=== PATIENT | female | born 1955 | race Caucasian/White ===

== ENCOUNTER 2019-09-14 06:33 | Outpatient (CLI) | payer MEDICARE, SELFPAY ==
--- NOTE | 2019-09-14 | ECHO_ITS ---
Patient Info Name: Enid Batista Age: 64 years : 1955 Gender: Female Ht: 64 in Wt: 125 lbs BSA: 1.60 m2 HR: 64 bpm BP: 130 / 73 mmHg Heart Rhythm: Sinus Rhythm Technical Quality: Good Exam Date: 09/14/2019 7:29 AM Exam Location: [facility] Pulmonary Patient Status: Outpatient Admit Date: 09/14/2019 Staff Ordering Physician: Lorne Harrell MD Slitter And Rewinder Machine Operator: Mj Phoenix, SOPHIECS, RT Attending Provider: Lorne Harrell MD Exam Type: CA echo doppler color flow Study Info Indications Z85.3 - Personal history of malignant neoplasm of breast Complete two-dimensional, color flow and Doppler transthoracic echocardiogram is performed. Summary 1. Left ventricular systolic function is normal, estimated at 55-60%. 2. The left ventricular diastolic function is indeterminate. 3. There is mild aortic valve regurgitation. 4. Technically difficult study with poor visualization. Recommendations * Technically difficult study with poor visualization. Left Ventricle Left ventricular systolic function is normal, estimated at 55-60%. The left ventricular diastolic function is indeterminate. Right Ventricle Right ventricular chamber dimension is normal. Right ventricular systolic function is normal. Left Atria Left atrial chamber dimension is not well visualized. Right Atria Right atrial chamber dimension is normal. Aortic Valve The aortic valve is not well visualized. There is no aortic valve stenosis. There is mild aortic valve regurgitation. Pulmonic Valve The pulmonic valve is not well visualized. There is no pulmonic valve stenosis. There is no pulmonic regurgitation. Mitral Valve The mitral valve has not well visualized. There is no mitral valve stenosis. There is no mitral valve regurgitation. Tricuspid Valve The tricuspid valve leaflets are not well visualized. There is no significant tricuspid valve stenosis. There is no tricuspid valve regurgitation. Pericardium/Pleural The pericardium appears epicardial fat pad. There is no pericardial effusion. Aorta The aortic root size at the sinus of Valsalva is normal. Left Ventricular Outflow Tract Name Value Normal LVOT 2D LVOT Diameter 1.9 cm LVOT Doppler LVOT Peak Velocity 58 cm/s LVOT Peak Gradient 1 mmHg LVOT Mean Gradient 1 mmHg LVOT VTI 13 cm LVOT VTI/AV VTI Ratio 0.6 LVOT Stroke Volume 38 ml Pulmonic Valve Name Value Normal PV Doppler PV Peak Velocity 58 cm/s PV Peak Gradient 1 mmHg Mitral Valve Name Value Normal
== END 2019-09-14 06:34 | disposition home or self-care (01) ==
LOC: ANHCARD 06:36
PROVIDERS: Visit Provider Internal Medicine Hematology & Oncology
DX: C50.411 Malignant neoplasm of upper-outer quadrant of right female breast (principal); Z17.0 Estrogen receptor positive status [ER+]; I35.1 Nonrheumatic aortic (valve) insufficiency
CPT/HCPCS: 93306

== ENCOUNTER 2019-11-27 16:09 | Outpatient (CLI) | payer MEDICARE, SELFPAY ==
--- NOTE | ~2019-11-27 | XR_ITS ---
XR chest 2V 11/27/2019 16:50 Indication: Shortness of breath. Procedure: 2 view chest Comparison: No prior studies for comparison. Findings: There is pectus excavatum. There are breast implants. There is a port catheter, tip in the SVC. No focal air space disease, pulmonary edema, pleural effusion or suspected pneumothorax. No acut e osseous abnormality. Impression: 1: No acute cardiopulmonary disease. Reviewed, dictated and finalized at location A. L OPPORTUNITY COUNSELOR Impression: 1: No acute cardiopulmonary disease.
== END 2019-11-27 16:10 | disposition home or self-care (01) ==
PROVIDERS: Visit Provider Internal Medicine Hematology & Oncology
DX: R06.02 Shortness of breath (principal)
CPT/HCPCS: 71046

== ENCOUNTER 2019-11-28 12:51 | Outpatient (CLI) | payer MEDICARE, SELFPAY ==
--- NOTE | ~2019-11-28 | CT_ITS ---
EXAMINATION: CTA chest PE protocol DATE: 11/28/2019 13:18 INDICATION: Shortness of breath. Elevated d-dimer. TECHNIQUE: Computed tomography angiography (CTA) of the chest was performed with 100 mL Omnipaque-350 intravenous contrast timed to evaluate the pulmonary arteries. Coronal maximum intensity projection 3D-reconstructions were created by the technologist. Automated exposure control and iterative reconst ruction technique were employed. Exam dose: 165.28 mGy-cm total exam DLP. COMPARISON: 11/27/2021 view chest FINDINGS: There is thyroid gland enlargement with multiple hypoattenuating masses is much is 13 mm di mension. Consider thyroid ultrasound nonemergent evaluation There is diagnostic contrast enhancement of the pulmonary arteries; there is no evidence of pulmonary embolism. No hilar or mediastinal mass lesion or lymphadenopathy. There is discoid atelectasis or scarring in the left lower lobe. No pulmonary infiltrate or consolida tion or pulmonary mass lesion. Cardiomegaly. Pectus excavatum. Bilateral breast implants. IMPRESSION: No evidence of pulmonary embolism Pectus excavatum Thyromegaly and thyroid masses; consider nonemergent thyroid ultrasound evaluation. Reviewed, dictated and finalized at Location A. Reviewed, dictated and finalized at location B. CTOR OF MARKETING OPERATIONS IMPRESSION: No evidence of pulmonary embolism Pectus excavatum Thyromegaly and thyroid masses; consider nonemergent thyroid ultrasound evaluat ion.
== END 2019-11-28 12:52 | disposition home or self-care (01) ==
PROVIDERS: Visit Provider Internal Medicine Hematology & Oncology
DX: R06.02 Shortness of breath (principal); R79.89 Other specified abnormal findings of blood chemistry; Q67.6 Pectus excavatum
CPT/HCPCS: 71275; Q9967

== ENCOUNTER 2019-11-29 15:24 | Observation (INO) | payer MEDICARE, SELFPAY ==
--- NOTE | ~2019-11-29 | XR_ITS ---
EXAMINATION: XR chest 2V EXAM DATE: 11/29/2019 16:04 INDICATION: Chest pain. TECHNIQUE: Frontal and lateral projections of the chest obtained and reviewed. Comparison is made to prior examination from 11/27/2019. FINDINGS: There is pectus excavatum. There is a left-sided Chemo-Port with intact catheter line. The lungs are clear. There are no pleural effusions. The cardiomediastinal silhouette is within normal limits. There is no pneumothorax suspected. The bones and soft tissues are unremarkable. Right a xillary surgical clips. IMPRESSION: No acute cardiopulmonary findings. Reviewed, dictated and finalized at location A. ITY ASSURANCE PROJECT MANAGER
--- NOTE | ~2019-11-29 | US_ITS ---
EXAMINATION: US thyroid DATE: 11/30/2019 13:50 INDICATION: Thyroid nodules. TECHNIQUE: Multiple ultrasound images of the thyroid were obtained. COMPARISON: Chest CT 11/28/2019 FINDINGS: The right thyroid lobe measures 4.8 x 1.0 x 1.6 cm. The left thyroid lobe measures 6.2 x 2.1 x 2.0 c m. In the left thyroid lobe, there is a 3.2 cm solid, isoechoic, xchsi-mkbt-lbue nodule with ill-def ined margin without echogenic foci (TI-RADS TR3). In the right thyroid lobe, there is an 8 mm solid, hypoechoic, wchad-sffa-kkpb nodule with ill-defined margin without echogenic foci (TR4). In the thyro id isthmus, there is a 2.5 cm solid, hypoechoic, rfbwd-ergx-rwgn nodule with ill-defined margin witho ut echogenic foci (TR4). IMPRESSION: 1. Thyroid nodules. Ultrasound-guided fine-needle aspiration of the 2 largest nodules is recommended. Reviewed, dictated and finalized at location A. L TREATER IMPRESSION: 1. Thyroid nodules. Ultrasound-guided fine-needle aspiration of the 2 largest n odules is recommended.
--- NOTE | ~2019-11-29 | US_ITS ---
EXAMINATION: US venous doppler [facility] DATE: 11/30/2019 13:43 INDICATION: Chest pain. TECHNIQUE: Grayscale ultrasound images without and with compression and Doppler ultrasound images of the bilateral lower extremity veins were obtained. COMPARISON: None. FINDINGS: The visualized portions of right common femoral vein, profunda (deep) femoral vein, femoral vein, pop liteal vein, peroneal veins, posterior tibial veins, and greater saphenous vein outflow are patent. The visualized portions of left common femoral vein, profunda femoral vein, femoral vein, popliteal v ein, peroneal veins, posterior tibial veins, and greater saphenous vein outflow are patent. IMPRESSION: 1. No deep venous thrombosis. Reviewed, dictated and finalized at location A. CULTURE AND FISHERIES PROFESSOR
--- NOTE | ~2019-11-29 | NM_ITS ---
EXAMINATION: NM sharif stress w perfusion DATE: 11/30/2019 11:30 INDICATION: Chest pain. TECHNIQUE: Rest images were obtained following intravenous administration of 10.5 mCi Tc99m tetrofosm in (Myoview). The patient was infused intravenously with Lexiscan (regadenoson). Then, 33 mCi Tc99m t etrofosmin (Myoview) was administered intravenously, and stress images were obtained. Data was recons tructed into short axis and horizontal and vertical long axis SPECT images. Gated SPECT images were a lso obtained. COMPARISON: Chest CT 11/28/2019 FINDINGS: There is no definite reversible or fixed perfusion abnormality to suggest ischemia or infar ction. There is no segmental wall motion abnormality. Left ventricular ejection fraction measures > 70%. IMPRESSION: 1. No definite ischemia or infarct. 2. Normal left ventricular ejection fraction measuring >70%. Reviewed, dictated and finalized at location A. MBLER CATERPILLAR SPIDER
[2019-11-29 15:33] VITALS: BP 153/83; PULSE 80; PULSE 85; RESP 27; TEMP 36.8; O2SAT 100
--- NOTE | 2019-11-29 15:33 | ECG_ITS ---
Measurements Intervals [place] Rate: 90 P: 55 DE: 161 QRS: 48 QRSD: 70 T: 36 QT: 313 QTc: 384 Interpretive Statements SINUS RHYTHM ATRIAL PREMATURE COMPLEX BORDERLINE ST-T WAVE ABNORMALITY- ANT/INF LEADS BASELINE ARTIFACT- I, II, III, V3 BORDERLINE ECG Electronically Signed On 11-29-2019 21:08:15 YOUTH SERVICES SPECIALIST by Juan Childers D.O.
--- NOTE | 2019-11-29 15:59 | PC.NURSE ---
Pt taken to CT scan
[2019-11-29 16:05] LABS: Basophils Percent Auto 0.1 % (0.2-1.2); Hematocrit 32.8 % (37.0-47.0); Hemoglobin 10.9 g/dL (12.0-15.0); Immature Granulocyte Absolute 0.08 K/mm3 (0.00-0.031); Immature Granulocyte Percent A 0.9 % (0-0.5); Lymphocytes Percent Auto 31.5 % (18.3-44.2); Mean Corpuscular HGB Conc 33.2 g/dl (32-36); Mean Corpuscular Hemoglobin 32.2 pg (26-34); Mean Corpuscular Volume 96.8 fl (80-100); Mean Platelet Volume 9.6 fl (7.4-10.4); Monocytes Absolute Auto 0.6 K/mm3 (0.1-0.6); Monocytes Percent Auto 6.3 % (2.6-8.5); Neutrophils Absolute Auto 5.4 K/mm3 (1.3-6.7); Neutrophils Percent Auto 61.2 % (45.5-73.1); Platelet Count Result 478 k/mm3 (150-375); Red Blood Count 3.39 M/mm3 (4.2-5.4); Red Cell Distribution Width 14.4 % (11.5-14.5); White Blood Count 8.9 K/mm3 (4.5-10.0)
--- NOTE | 2019-11-29 16:12 | ED.CHESTPAIN ---
HPI - Chest Pain General Chief Complaint: Chest Pain Stated Complaint: CHEST PAIN & SOB Time Seen by Provider: 11/29/19 16:03 Source: patient Mode of arrival: ambulatory Limitations: no limitations History of Present Illness HPI narrative: A 64 y/o female presents to the ED with c/o CP. Pt states that today she suddenly had chest tightness and a hot feeling in her chest. The CP radiated into her jaw and was accompanied by a MAE, SOB, and a weird taste in her mouth. She notes that she is currently diagnosed with breast cancer, and last had chemotherapy on 11/27/19. Pt adds that she had some SOB after her chemotherapy, and had a D-dimer test which came back positive. She reports that she had a CTA and chest X-Ray done at [place], which were clear. MD complaint: chest pain Onset (ago): hour(s) (Today) Pain radiation: jaw/teeth Quality: tightness and other (Hot feeling in chest) Context: recent illness Associated symptoms: dyspnea and other (MAE, weird taste in mouth) Related Data Home Medications Medication Instructions Recorded Confirmed calcium carbonate-vitamin D3 1 tablet PO DAILY 09/22/19 11/17/19 [Calcium 500 + D] ondansetron HCl 4 mg PO Q8H 09/22/19 11/17/19 dexamethasone 4 mg PO BID 11/17/19 11/17/19 Allergies Allergy/AdvReac Type Severity Reaction Status Date / Time bacitracin Allergy Mild Blister Verified 09/12/19 15:27 [From Neosporin ([id number])] neomycin Allergy Mild Blister Verified 09/12/19 15:27 [From Neosporin ([id number])] polymyxin B Allergy Mild Blister Verified 09/12/19 15:27 [From Neosporin ([id number])] amoxicillin Allergy Unknown HIVES Verified 09/16/15 06:25 codeine Allergy Unknown JITTERY Verified 09/16/15 06:25 Review of Systems Review of Systems: Narrative: CONSTITUTIONAL: Denies fever, chills, or sweats. EYES: Denies visual changes, redness, or discharge. ENT: Denies rhinorrhea, congestion, sore throat, or otalgia. Reports weird taste in mouth. CARDIOVASCULAR: Denies palpitations or edema. Reports chest pain and tightness. RESPIRATORY: Denies cough. Reports dyspnea. GASTROINTESTINAL: Denies abdominal pain, nausea, vomiting, or diarrhea. GENITOURINARY: Denies dysuria or hematuria. SKIN: Denies rash or itching. MUSCULOSKELETAL: Denies back pain, joint pain, or myalgia. NEUROLOGIC: Denies numbness or weakness. Reports headache. All systems reviewed & are unremarkable except as noted in HPI and below PMFSH Past Medical History Medical History (Updated 11/29/19 @ 18:49 by Yolette Adames MD) Breast CA History of chemotherapy Post-menopausal Surgical History Surgical History (Updated 11/29/19 @ 17:16 by Erin Hernandes) Surgical history unknown Social History Social History Smoking status: Never smoker Gender identity (if verbalized by the patient): Female Spiritual care concerns: No Exam Narrative: Exam Narrative: GENERAL: Anxious-appearing, well-nourished, and in no acute distress. HEAD: Normocephalic, atraumatic. EYES: PERRLA and EOMI. ENT: Nares clear, no rhinorrhea or epistaxis. Mucous membranes moist. NECK: Supple. CHEST: Clear to auscultation. No respiratory distress. HEART: Regular rate and rhythm. No murmur heard. Normal peripheral pulses. No chest wall tenderness. Bilateral breast implants ABDOMEN: Soft, nontender, nondistended, normal active bowel sounds. EXTREMITIES: Normal range of motion. No edema. SKIN: Warm, dry, no rash. NEURO: No focal deficits. Alert and oriented X3. Course Course Emergency Course: Pt presented for evaluation of chest pain. Initial EKG without acute ischemic changes. Pt declined nitro in the ED. Pain is intermittent but per patient is associated with nausea, dyspnea. Initial troponin normal. Pt had CTA normal which showed no PE or effusions. Pain does seem atypical given symptoms. Also considered GI etiology, however symptoms do not really seem consisten
[2019-11-29 16:17] LABS: Blood Urea Nitrogen 32 mg/dL (7-17); Calcium 9.8 mg/dL (8.4-10.2); Carbon Dioxide 24 mmol/L (22-30); Chloride 100 mmol/L (98-107); Estimated CRCL calculation 53 ml/min; Estimated Glomerular Filt Rate > 60; Glucose 100 mg/dL (65-105); Potassium 3.9 mmol/L (3.4-5.0); Sodium 139 mmol/L (137-145)
[2019-11-29 16:28] LABS: Troponin I < 0.012 ng/mL (0.000-0.034)
[2019-11-29 16:44] LABS: Prothrombin Time 12.7 Seconds (11.1-14.7)
--- NOTE | 2019-11-29 17:04 | ECG_ITS ---
Measurements Intervals [place] Rate: 73 P: 56 CA: 176 QRS: 38 QRSD: 87 T: 29 QT: 372 QTc: 411 Interpretive Statements SINUS RHYTHM BASELINE ARTIFACT- I, II, III, AVL NORMAL ECG Electronically Signed On 11-29-2019 21:08:38 DISABILITY MANAGER by Juan Childers D.O.
[2019-11-29] MEDS: ASPIRIN 81 MG CHEWABLE TABLET 324 MG PO (17:20)
[2019-11-29 17:24] VITALS: BP 146/81; PULSE 81; RESP 16; O2SAT 96
[2019-11-29 17:39] LABS: NT Pro B Type Natriuretic Pept 232 PG/ML (5-100)
[2019-11-29 18:40] LABS: Troponin I < 0.012 ng/mL (0.000-0.034)
--- NOTE | 2019-11-29 19:09 | PC.NURSE ---
Called to give report and spoke with receiving nurse Barby. Barby asked if we could wait until 1930 to bring pt up.
[2019-11-29 19:59] LABS: Cholesterol 274 mg/dL (0-200); HDL Direct 39 mg/dL; Triglycerides 307 mg/dL (<150)
[2019-11-29 20:00] VITALS: BP 153/86; PULSE 72; PULSE 76; RESP 18; TEMP 36.2; O2SAT 99
--- NOTE | 2019-11-29 20:00 | ADMGEN ---
This patient, Enid Batista, was admitted to IMU Room 210-01. Patient/family oriented to hospital policies and general routines including ID bracelet, bed and alarms, visiting hours, pain management, procedures, bathroom and other care routines, personal items, smoking policy, room service/diet, and visiting hours. Valuables list has been completed. Information on how to activate the Rapid Response Team has been discussed. Patient/Family are encouraged to report perceived risks to care and to ask questions if they do not understand what they are told or what they should do.
[2019-11-29 20:08] VITALS: BP 132/86; PULSE 79; RESP 18; O2SAT 100
[2019-11-29 20:09] LABS: LDL Cholesterol Direct 185 mg/dL
[2019-11-29 22:00] VITALS: PULSE 81
--- NOTE | 2019-11-29 22:26 | PM.IMHP ---
H&P: HPI History of Present Illness Chief complaint: chest pain Narrative: Enid Batista is a 64 year old female who has a history of breast cancer. The patient was diagnosed with breast cancer June 2019. She started on chemotherapy September of last year. Her last chemotherapy was Wednesday. The patient is supposed to have chemo get on Wednesday. She is supposed to have 2 more rounds of chemo and then that it. The patient stated that suddenly she developed chest tightness and feeling hot in her chest and her neck and when upset around her face and her head. Patient also developed a weird taste in her mouth. Patient is also short of breath. She had an elevated D-dimer test. She also had a CTA which was negative for PE on the . There is thyromegaly and thyroid masses consider nonemergent thyroid ultrasound evaluation as well. Chest x-ray showed nothing acute. Patient was given nitro on aspirin. Cardiac enzymes were negative. Dr. chandra and Dr. fernandez both were notified and agreed to admit the patient overnight. Patient may possibly be going for a chemical and do stress test and echo tomorrow. Date of service 11/29/2019 Review of Systems Review of Systems: Narrative: The patient had mid substernal chest pressure that radiated up both sides of her neck opposed sides of her head and to the top of her head. She had no light headedness but has been short of breath. Patient has been a nonsmoker. No cardiac are lung history. All systems reviewed & are unremarkable except as noted in HPI and below Constitutional: Constitutional: Reports as per HPI and Reports no additional constitutional complaints Eyes: Eyes: Reports as per HPI and Reports no additional eye complaints ENT: Reports system reviewed and no additional complaints, except as documented and Reports Normal hearing present Cardiovascular: Cardiovascular: Reports no additional cardiovascular complaints Respiratory: Respiratory: Reports no additional respiratory complaints and Reports no additional respiratory complaints Gastrointestinal: Gastrointestinal: Reports as per HPI and Reports no additional gastrointestinal complaints Musculoskeletal: Musculoskeletal: Reports no additional musculoskeletal complaints Integumentary/Breasts: Skin/Breast: Reports system reviewed and no additional complaints, except as docu and Reports as per HPI Neurologic: Reports system reviewed and no additional complaints, except as documented, Reports as per HPI and Reports Normal hearing present Psychiatric: Psychiatric: Reports no additional psychiatric complaints and Reports as per HPI Endocrine: Endocrine: Reports no additional endocrine complaints Hematologic/Lymphatic: Hematologic/Lymphatic: Reports no additional hematologic/lymphatic complaints Allergic/Immunologic: Allergic/Immunologic: Reports no additional allergic/immunologic complaints [facility] Past Medical History Medical History (Updated 11/29/19 @ 22:38 by Bryanna Clifford NP) Breast CA Diagnosed June 2019. She started chemotherapy September of 2019. She has 2 more chemo treatments. She sees Dr. fernandez. She had bilateral mastectomy and reconstruction. History of chemotherapy Post-menopausal Surgical History Surgical History (Updated 11/29/19 @ 22:32 by Bryanna Clifford NP) H/O mastectomy Bilaterally with breast reconstruction. Hx of breast reconstruction Family History Family History (Updated 11/29/19 @ 22:34 by Bryanna Clifford NP) Unknown Unknown family medical history Social History Social History (Updated 11/29/19 @ 22:35 by Bryanna Clifford NP) Social History: The patient has 3 children she is . 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 Her daughter Joleen is a durable power personal injury attorney for healthcare. Patient is a full code. Lifelong nonsmoker does not drink or use street drugs Smoking status: Never smoker Alcohol intake: never Substance use: never Subst
[2019-11-29 22:53] LABS: Troponin I < 0.012 ng/mL (0.000-0.034)
[2019-11-30] VITALS (8 sets, daily range): BP systolic 94–123; BP diastolic 55–65; PULSE 64–120; RESP 18–20; TEMP 36.3–37.3; O2SAT 97–100
--- NOTE | 2019-11-30 | ECHO_ITS ---
Patient Info Name: Enid Batista Age: 64 years : 1955 Gender: Female Ht: 64 in Wt: 120 lbs BSA: 1.57 m2 HR: 110 bpm BP: 123 / 65 mmHg Heart Rhythm: Tachycardia Technical Quality: Fair Exam Date: 11/30/2019 2:47 PM Exam Location: [facility] Card Pulmonary Patient Status: Inpatient Admit Date: 11/29/2019 Staff Ordering Physician: Yolette Adames MD Awnings Mechanic: Horace Santana RDCS Attending Provider: Tony Cannon MD Referring Physician: Zacarias ANN; Exam Type: CA echo doppler color flow Study Info Indications R07.9 - Chest pain, unspecified Complete two-dimensional, color flow and Doppler transthoracic echocardiogram is performed. History/Risk Factors Chest pain; SOB, breast cancer. Summary 1. Left ventricular systolic function is normal, estimated at 65-70%. 2. There is mildly increased left ventricular wall thickness. 3. Right ventricular chamber dimension is mildly enlarged. 4. Mild pulmonary hypertension, estimated pulmonary arterial systolic pressure is 45 mmHg. 5. There is mild tricuspid valve regurgitation. Left Ventricle Left ventricular chamber dimension is normal. Left ventricular systolic function is normal, estimated at 65-70%. There is mildly increased left ventricular wall thickness. Left ventricular septal wall motion is normal. The left ventricular diastolic function is normal. Right Ventricle Right ventricular chamber dimension is mildly enlarged. Right ventricular systolic function is normal. Left Atria Left atrial chamber dimension is normal. Right Atria Right atrial chamber dimension is normal. Aortic Valve The aortic valve is trileaflet. There is no aortic valve sclerosis. There is no aortic valve stenosis. There is no aortic valve regurgitation. Pulmonic Valve The pulmonic valve is normal. There is no pulmonic valve stenosis. There is no pulmonic regurgitation. Mitral Valve The mitral valve has normal leaflets. There is no mitral valve stenosis. There is no mitral valve regurgitation. Tricuspid Valve The tricuspid valve leaflets are normal. There is no significant tricuspid valve stenosis. There is mild tricuspid valve regurgitation. Mild pulmonary hypertension, estimated pulmonary arterial systolic pressure is 45 mmHg. Pericardium/Pleural The pericardium appears normal. There is no pericardial effusion. Aorta The aortic root size at the sinus of Valsalva is normal. The prox ascending aorta size is normal. Left Ventricular Outflow Tract Name Value Normal LVOT 2D LVOT Diameter 1.8 cm LVOT Doppler LVOT Peak Gradient 3 mmHg LVOT Mean Gradient 2 mmHg LVOT VTI 12 cm LVOT VTI/AV VTI Ratio 0.6 LVOT Stroke Volume 31 ml LVOT CO 3.4 l/min LVOT CI 2.2 l/min/m2 Mitral Valve Name Value
[2019-11-30 05:10] LABS: Basophils Percent Auto 0.3 % (0.2-1.2); Eosinophils Percent Auto 0.5 % (0-4.4); Hematocrit 29.1 % (37.0-47.0); Hemoglobin 9.7 g/dL (12.0-15.0); Immature Granulocyte Absolute 0.04 K/mm3 (0.00-0.031); Immature Granulocyte Percent A 0.6 % (0-0.5); Lymphocytes Absolute Auto 2.28 K/mm3 (0.9-3.2); Lymphocytes Percent Auto 36.7 % (18.3-44.2); Mean Corpuscular HGB Conc 33.3 g/dl (32-36); Mean Corpuscular Hemoglobin 32.4 pg (26-34); Mean Corpuscular Volume 97.3 fl (80-100); Mean Platelet Volume 9.8 fl (7.4-10.4); Monocytes Absolute Auto 0.3 K/mm3 (0.1-0.6); Monocytes Percent Auto 5.5 % (2.6-8.5); Neutrophils Absolute Auto 3.5 K/mm3 (1.3-6.7); Neutrophils Percent Auto 56.4 % (45.5-73.1); Platelet Count Result 390 k/mm3 (150-375); Red Blood Count 2.99 M/mm3 (4.2-5.4); Red Cell Distribution Width 14.4 % (11.5-14.5); White Blood Count 6.2 K/mm3 (4.5-10.0)
[2019-11-30 05:26] LABS: Alanine Aminotransferase 24 U/L (4-35); Albumin Level 3.1 g/dL (3.5-5.1); Alkaline Phosphatase 57 U/L (38-126); Aspartate Amino Transferase 22 U/L (14-36); Bilirubin,Total 0.5 mg/dL (0.2-1.3); Blood Urea Nitrogen 30 mg/dL (7-17); Calcium 8.7 mg/dL (8.4-10.2); Carbon Dioxide 25 mmol/L (22-30); Chloride 103 mmol/L (98-107); Estimated CRCL calculation 57 ml/min; Estimated Glomerular Filt Rate > 60; Glucose 99 mg/dL (65-105); Magnesium 2.2 mg/dL (1.6-2.3); Potassium 4.1 mmol/L (3.4-5.0); Sodium 138 mmol/L (137-145)
--- NOTE | 2019-11-30 08:00 | EST_ITS ---
Patient Info Name: Enid Batista Age: 64 years : 1955 Gender: Female Ht: 64 in Wt: 116 lbs BSA: 1.54 m2 Exam Date: 11/30/2019 10:19 AM Exam Location: [facility] Stress Patient Status: Inpatient Admit Date: 11/29/2019 Staff Ordering Physician: Francisco Luther MD Attending Provider: Tony Cannon MD Exercise Technologist: Ivanna Landa RDCS Exercise Physician: Robin Knutson MD Exam Type: CA stress sharif w NM Study Info Indications R07.89 - Other chest pain A regadenoson stress test was performed. Summary 1. Indication for the stress test, chest pain. 2. Please correlate with nuclear medicine images, reported separately. 3. No abnormal ST-T wave changes with lexiscan. 4. Nuclear test results to follow. Protocol: Lexiscan Stress ECG Details Stage: REST Duration (min): 1 min : 27 sec HR (bpm): 87 SBP (mmHg): 154 DBP (mmHg): 91 Stage: REST Duration (min): 7 min : 35 sec HR (bpm): 87 SBP (mmHg): 154 DBP (mmHg): 91 Stage: STAGE 1 Duration (min): 0 min : 59 sec HR (bpm): 82 SBP (mmHg): 165 DBP (mmHg): 86 Stage: RECOVERY Duration (min): 1 min : 0 sec HR (bpm): 119 SBP (mmHg): 165 DBP (mmHg): 86 Stage: RECOVERY Duration (min): 2 min : 0 sec HR (bpm): 119 SBP (mmHg): 146 DBP (mmHg): 73 Stage: RECOVERY Duration (min): 3 min : 0 sec HR (bpm): 120 SBP (mmHg): 144 DBP (mmHg): 69 Stage: RECOVERY Duration (min): 4 min : 0 sec HR (bpm): 113 SBP (mmHg): 144 DBP (mmHg): 69 Stage: RECOVERY Duration (min): 5 min : 0 sec HR (bpm): 112 SBP (mmHg): 142 DBP (mmHg): 69 Stage: RECOVERY Duration (min): 6 min : 0 sec HR (bpm): 111 SBP (mmHg): 142 DBP (mmHg): 69 Stage: RECOVERY Duration (min): 6 min : 45 sec HR (bpm): 110 SBP (mmHg): 139 DBP (mmHg): 71 Rest HR: 87 bpm Peak HR: 122 bpm Rest Sys BP: 154 mmHg Peak Sys BP: 165 mmHg Max Pred HR: 155 bpm % Max Pred HR: 79 % Target HR: 132 bpm Max RPP: 20,130 bpm*mmHg BP Response: Normal blood pressure response Termination Reason: Completed protocol Cardiac Symptoms: Dyspnea Total Time: 1 min : 0 sec Rest Chavez BP: 91 mmHg Peak Chavez BP: 86 mmHg Total Dose: 0.4 mg Resting ECG Normal sinus rhythm. Stress ECG No abnormal ST/T wave changes with exercise. Arrhythmias None. Report Signatures
--- NOTE | 2019-11-30 09:03 | PM.CNCAR ---
Assessment and Plan Assessment and plan (1) Thyroid nodule: Code(s): E04.1 - Nontoxic single thyroid nodule Status: Acute Assessment and Plan: Patient is a 64-year-old white woman with history of breast cancer (diagnosed June 2019, started on chemotherapy September 2019, last chemotherapy Wednesday, with 2 more rounds of chemotherapy planned), who is seen in cardiac consultation for chief complaint of chest pain. - thyroid ultrasound and evaluation as per primary service. - TSH normal this admission. (2) Atypical chest pain: Code(s): R07.89 - Other chest pain Status: Acute Assessment and Plan: -Patient presents with atypical chest pain currently resolved. -serial troponin negative for injury and EKG without evidence of acute injury. -obtain Lexiscan nuclear stress test to evaluate for ischemia. -obtain echo to evaluate cardiac structure and function. -continue aspirin. -CTA of the chest negative for pulmonary embolism but given elevated D-dimer, lower extremity venous Doppler pending. -Repeat fasting lipid panel as patient may not have been fasting with her presenting lipid panel. LDL was elevated 185 and triglycerides elevated 307 on initial assessment. Patient does not want to start a statin at this time. (3) Breast CA: Code(s): C50.919 - Malignant neoplasm of unspecified site of unspecified female breast Status: Acute Assessment and Plan: - Management as per primary service and accommodate. - Obtain echo to evaluate cardiac structure/function given recent ongoing chemotherapy. History of Present Illness History of Present Illness Consult date/time: 11/30/19 09:03 Patient is a 64-year-old white woman with history of breast cancer (diagnosed June 2019, started on chemotherapy September 2019, last chemotherapy Wednesday, with 2 more rounds of chemotherapy planned), who is seen in cardiac consultation for chief complaint of chest pain. Patient reports new onset central chest pressure while lying down after eating soup. She reported a feeling of warmth in her chest with some associated dyspnea with the discomfort extending to her neck. She also noticed an unusual taste in her mouth. Patient was seen in the emergency department for evaluation of this and had elevated D-dimer prompting a CTA of the chest was negative for pulmonary embolism. Thyromegaly and thyroid masses were noted on CTA with consideration of nonemergent thyroid ultrasound. Chest x-ray showed no acute disease. Patient was treated with aspirin. Serial troponin I was negative for injury. Patient reports a 4 week history of increased exertional dyspnea. She denies edema, orthopnea, or paroxysmal nocturnal dyspnea. She denies palpitations but reports occasional dizziness. She denies syncope. Patient denies any history of myocardial infarction, coronary artery disease, congestive heart failure, cardiac arrhythmia, or valvular heart disease. She denies any history of prior left heart catheterization or prior cardiac stress testing. She denies any history of tobacco use, alcohol use, or drug use. Patient reports that her father had myocardial infarction with congestive heart failure in his late 50s and early 60s. This admission, telemetry demonstrated normal sinus rhythm, 77 beats per minute. EKG demonstrates normal sinus rhythm, 73 beats per minute, baseline artifact. Troponin I was negative for injury on 3 occasions. Creatinine was 0.8, potassium 3.9, magnesium 2.2. N terminal proBNP was elevated to 132. LDL was elevated 185 and triglycerides elevated at 307. TSH was normal at 1.48. Previously, the patient had echocardiogram on 09/14/2019: Left ventricular systolic function normal, left ventricular ejection fraction 55-60%, mild aortic valve regurgitation, technically difficult study. Patient was seen and examined, chart reviewed, case discussed with nurse. Reason For Visit: chest pain Review of System
--- NOTE | 2019-11-30 11:40 | PM.DS ---
DS: Diagnosis Admitting Diagnosis Admitting Diagnosis: Other chest pain Discharge Diagnosis (1) Atypical chest pain: Code(s): R07.89 - Other chest pain Status: Acute Assessment and Plan: Discussed the etiology for chest pain does not appear to be cardiac or pulmonary It may be reflux or indigestion related to chemotherapy She will report any further recurrences to her primary physician or oncologist (2) Breast CA: Code(s): C50.919 - Malignant neoplasm of unspecified site of unspecified female breast Status: Acute Assessment and Plan: She will discuss resumption of chemotherapy with her oncologist (3) Thyroid nodule: Code(s): E04.1 - Nontoxic single thyroid nodule Status: Acute Assessment and Plan: Ultrasound with multinodular goiter Needle biopsy recommended DS: Summary Hospital Course Reason for hospitalization: Chest discomfort Hospital Course: Patient described a burning chest discomfort associated shortness of breath. Radiation to the neck and face. Presented the emergency department where EKG was unremarkable, troponins were negative at baseline 3 hours and 6 hours, chest x-ray was unremarkable, and CT of the chest showed no pulmonary emboli. It did reveal a goiter. Ultrasound showed a multinodular goiter. Venous Dopplers both legs showed no DVT. Lexiscan stress was negative with ejection fraction greater than 70%. Echocardiogram was performed with results pending at the time of this dictation. Status at Discharge Functional status at discharge: independent ambulation Overall status at discharge: patient is back to baseline Time Spent with Patient Time attestation: Total time spent providing and/or coordinating discharge services: 38 min Exam Narrative: Exam Narrative: HEENT: EOMI, PERRL, pharyngeal mucosa pink and intact NECK: No JVD, mild thyromegaly CHEST: Clear to auscultation. Normal effort. HEART: NL S1/S2, regular, no murmur ABDOMEN: BS+, soft, nontender, no mass, no bruits EXTREMITIES: No cyanosis, edema, or clubbing NEUROLOGIC: CN intact and symmetric to inspection. MUSCULOSKELETAL: Tone and strength symmetric. PSYCH: Alert. Oriented to person, place, and time. DS: Data Data Completed and Pending Labs on day of discharge: Labs from last 24 hours 11/30/19 11/30/19 11/30/19 04:36 04:36 04:36 WBC 6.2 RBC 2.99 L Hgb 9.7 L Hct 29.1 L MCV 97.3 MCH 32.4 MCHC 33.3 RDW 14.4 Plt Count 390 H MPV 9.8 Immature Gran % (Auto) 0.6 H Neut % (Auto) 56.4 Lymph % (Auto) 36.7 [place] % (Auto) 5.5 Eos % (Auto) 0.5 Baso % (Auto) 0.3 Lymph # (Auto) 2.28 [place] # (Auto) 0.3 Eos # (Auto) 0.0 Baso # (Auto) 0.0 Abs Immat Gran (auto) 0.04 H Absolute Neuts (auto) 3.5 Absolute Nucleated RBC 0.0 Nucleated RBC % 0.0 PT INR APTT Sodium 138 Potassium 4.1 Chloride 103 Carbon Dioxide 25 BUN 30 H Creatinine 0.70 Estim Creat Clear Calc 57 Estimated GFR > 60 Glucose 99 Calcium 8.7 Magnesium 2.2 Total Bilirubin 0.5 AST 22 ALT 24 Alkaline Phosphatase 57 Troponin I NT-Pro-B Natriuret Pep Total Protein 6.0 L Albumin 3.1 L Triglycerides Cholesterol LDL Cholesterol Direct HDL Direct TSH (Reflex) 1.480 11/29/19 11/29/19 11/29/19 22:12 18:13 18:13 WBC RBC Hgb Hct MCV MCH MCHC RDW Plt Count MPV Immature Gran % (Auto) Neut % (Auto) Lymph % (Auto) [place] % (Auto) Eos % (Auto) Baso % (Auto) Lymph # (Auto) [place] # (Auto) Eos # (Auto) Baso # (Auto) Abs Immat Gran (auto) Absolute Neuts (auto) Absolute Nucleated RBC Nucleated RBC % PT INR APTT Sodium Potassium Chloride Carbon Dioxide BUN Creatinine Estim Creat Clear Calc Estimated GFR Glucose Calcium Magnesium Total Bilirub
[2019-11-30] MEDS: ASPIRIN 81 MG CHEWABLE TABLET 324 MG PO (11:47)
[2019-11-30] MEDS: FAMOTIDINE 20 MG/2 ML VIAL IV PUSH (11:48)
== END 2019-11-30 17:58 | disposition home or self-care (01) ==
LOC: ANHED 16:03 → ANHIMU 18:49
PROVIDERS: Family Medicine; Nurse Practitioner; Specialist; Admitting Provider Internal Medicine; Emergency Provider Emergency Medicine; Visit Provider Internal Medicine
DX: R07.89 Other chest pain (principal); C50.919 Malignant neoplasm of unspecified site of unspecified female breast; Z78.0 Asymptomatic menopausal state; E04.1 Nontoxic single thyroid nodule; R06.02 Shortness of breath; Z79.899 Other long term (current) drug therapy
CPT/HCPCS: 36415; 71046; 76536; 78452; 80048; 80053; 80061; 83735; 83880; 84443; 84484; 85025; 85610; 85730; 87040; 93005; 93017; 93306; 93970; 96374; 96376; 99285; A9270; A9502; G0378; J2785

== ENCOUNTER 2020-06-21 09:50 | Outpatient (CLI) | payer MEDICARE, SELFPAY ==
--- NOTE | 2020-06-21 | ECHO_ITS ---
Patient Info Name: Enid Batista Age: 65 years : 1955 Gender: Female Ht: 64 in Wt: 130 lbs BSA: 1.64 m2 BP: 141 / 75 mmHg Heart Rhythm: Sinus Rhythm Exam Date: 06/21/2020 10:08 AM Exam Location: [facility] Patient Status: Outpatient Admit Date: 06/21/2020 Staff Ordering Physician: Lorne Harrell MD Paste Maker: Phoebe Randolph RDCS Attending Provider: Lorne Harrell MD Referring Physician: Julio Cesar CARTY; Exam Type: CA echo doppler color flow Study Info Indications - PRE-OP Complete two-dimensional, color flow and Doppler transthoracic echocardiogram is performed. Summary 1. Complete two-dimensional, color flow and Doppler transthoracic echocardiogram is performed. 2. Technically difficult study with limited views. 3. Left ventricular chamber dimension is normal. 4. Left ventricular wall thickness is normal. 5. Left ventricular systolic function is mildly reduced with an ejection fraction by Biplane Method of Discs of 48 %. 6. There is mild aortic valve regurgitation. 7. There is mild to moderate mitral valve regurgitation. Left Ventricle Left ventricular chamber dimension is normal. Left ventricular wall thickness is normal. Left ventricular systolic function is mildly reduced with an ejection fraction by Biplane Method of Discs of 48 %. Normal diastolic function for age. Left ventricular endocardium is not well visualized preventing adequate wall motion interpretation. Right Ventricle Right ventricular chamber dimension is normal. Right ventricular systolic function is normal. Ventricular Septum No evidence for ventricular septal defect by two dimensional and colorflow Doppler imaging. Left Atria Left atrial chamber dimension is normal. Right Atria Right atrial chamber dimension is normal. Atrial Septum Interatrial septum not well visualized by 2D imaging. Aortic Valve Aortic valve is not well visualized. There is mild aortic valve sclerosis. There is no aortic valve stenosis. There is mild aortic valve regurgitation. The aortic valve is trileaflet. Pulmonic Valve Pulmonary valve is not well visualized. There is trace pulmonic regurgitation. There is mild pulmonic valve stenosis. Mitral Valve Mitral valve is structurally and functionally normal to two-dimensional, color flow Doppler and Doppler interrogation. Mitral valve is not well visualized. There is mild to moderate mitral valve regurgitation. There is no mitral valve stenosis. Tricuspid Valve The tricuspid valve is not well visualized. There is mild tricuspid valve regurgitation. There is no significant tricuspid valve stenosis. No pulmonary hypertension, estimated pulmonary arterial systolic pressure is 27 mmHg. Pericardium/Pleural Pericardium is normal in appearance with no evidence for significant pericardial effusion. Inferior Vena Cava Inferior vena cava is not well visualized. Normal inferior vena cava with <50% collapse upon inspiration consistent with elevated right atrial pressure, 10 mmHg. Aorta The ascending aorta is not well visualized. Left Ventricular Outflow Tract Name Value Normal LVOT 2D LVOT Diameter 2.0 cm LVOT Doppler
== END 2020-06-21 09:51 | disposition home or self-care (01) ==
PROVIDERS: Visit Provider Internal Medicine Hematology & Oncology
DX: Z01.810 Encounter for preprocedural cardiovascular examination (principal); I08.0 Rheumatic disorders of both mitral and aortic valves
CPT/HCPCS: 93306

== ENCOUNTER 2020-07-30 12:27 | Outpatient (CLI) | payer MEDICARE, SELFPAY ==
--- NOTE | 2020-07-30 | ECHO_ITS ---
Patient Info Name: Enid Batista Age: 65 years : 1955 Gender: Female Ht: 64 in Wt: 130 lbs BSA: 1.64 m2 HR: 60 bpm BP: 110 / 75 mmHg Heart Rhythm: Sinus Rhythm Technical Quality: Good Exam Date: 07/30/2020 1:09 PM Exam Location: [facility] Patient Status: Outpatient Admit Date: 07/30/2020 Staff Ordering Physician: Lorne Harrell MD [employer]: [place], [place], [place] Attending Provider: Lorne Harrell MD Referring Physician: Julio Cesar CARTY; Exam Type: CA echo doppler color flow Study Info Indications C80.1 - Malignant (primary) neoplasm, unspecified Complete two-dimensional, color flow and Doppler transthoracic echocardiogram is performed. Strain analysis performed. Summary 1. Complete two-dimensional, color flow and Doppler transthoracic echocardiogram is performed. 2. Left ventricular chamber dimension is normal. 3. Left ventricular systolic function is normal, estimated at 55-60%. 4. Ejection fraction is measured at 56%. 5. There is mild aortic valve regurgitation. Left Ventricle Left ventricular chamber dimension is normal. Left ventricular systolic function is normal, estimated at 55-60%. The left ventricular diastolic function is normal. Ejection fraction is measured at 56%. Right Ventricle Right ventricular chamber dimension is normal. Left Atria Left atrial chamber dimension is normal. Right Atria Right atrial chamber dimension is normal. Aortic Valve The aortic valve is trileaflet. There is mild aortic valve regurgitation. Pulmonic Valve The pulmonic valve is not well visualized. Mitral Valve The mitral valve has normal leaflets. Tricuspid Valve The tricuspid valve leaflets are normal. Pericardium/Pleural The pericardium appears normal. Aorta The aortic root size at the sinus of Valsalva is normal. Left Ventricular Outflow Tract Name Value Normal LVOT 2D LVOT Diameter 2.0 cm LVOT Doppler LVOT Peak Gradient 2 mmHg LVOT Mean Gradient 1 mmHg LVOT VTI 15 cm LVOT VTI/AV VTI Ratio 0.8 LVOT Stroke Volume 47 ml LVOT CO 2.9 l/min LVOT CI 1.8 l/min/m2 Mitral Valve Name Value Normal MV Doppler MV Decel [place] 249 cm/s2 MV PHT 65 ms MV Area (PHT) 3.4 cm2 4.0-5.0 MV Diastolic Function MV E Peak Velocity 56 cm/s MV A Peak Velocity 61 cm/s MV E/A 0.9 MV Decel Time 224 ms
== END 2020-07-30 12:28 | disposition home or self-care (01) ==
PROVIDERS: Visit Provider Internal Medicine Hematology & Oncology
DX: C50.411 Malignant neoplasm of upper-outer quadrant of right female breast (principal); Z17.0 Estrogen receptor positive status [ER+]; Z79.899 Other long term (current) drug therapy
CPT/HCPCS: 93306

== ENCOUNTER 2020-09-13 07:05 | Outpatient (NON) | payer MEDICARE, SELFPAY ==
[2020-09-13 19:11] LABS: SARS-CoV-2 RNA PCR Negative
== END 2020-09-13 07:06 ==
DX: Z20.828 Contact with and (suspected) exposure to other viral communicable diseases (principal); R09.89 Other specified symptoms and signs involving the circulatory and respiratory systems
CPT/HCPCS: 87635; C9803; U0003

== ENCOUNTER 2025-01-03 13:16 | Outpatient (CLI) | payer MEDICARE, SELFPAY ==
[2025-01-03 13:30] LABS: Basophils Absolute Auto 0.1 K/mm3 (0.0-0.1); Basophils Percent Auto 0.8 % (0.2-1.2); Eosinophils Absolute Auto 0.1 K/mm3 (0-0.3); Eosinophils Percent Auto 0.6 % (0-4.4); Hematocrit 40.4 % (37.0-47.0); Hemoglobin 13.5 g/dL (12.0-15.0); Immature Granulocyte Absolute 0.01 K/mm3 (0.00-0.031); Immature Granulocyte Percent A 0.1 % (0-0.5); Lymphocytes Absolute Auto 2.55 K/mm3 (0.9-3.2); Lymphocytes Percent Auto 32.8 % (18.3-44.2); Mean Corpuscular HGB Conc 33.4 g/dl (32-36); Mean Corpuscular Hemoglobin 32.1 pg (26-34); Mean Corpuscular Volume 96.2 fl (80-100); Mean Platelet Volume 9.2 fl (7.4-10.4); Monocytes Absolute Auto 0.7 K/mm3 (0.1-0.6); Monocytes Percent Auto 8.5 % (2.6-8.5); Neutrophils Absolute Auto 4.5 K/mm3 (1.3-6.7); Neutrophils Percent Auto 57.2 % (45.5-73.1); Platelet Count Result 287 k/mm3 (150-375); Red Cell Distribution Width 12.9 % (11.5-14.5); White Blood Count 7.8 K/mm3 (4.5-10.0)
--- OUTSIDE RECORDS SUMMARY | 2025-01-03 14:25 | XMS_ITS | Encounter Summary ---
Author Organization [facility] Address [address] [place] [address] Care Team Providers Care Bodywork Therapist Name Role Phone Mariya Bruce MD Primary Care Provider [phone] Encounter Details Date Type Department Care Team (Late st Contact Info) Description 12/12/2008 Outpatient Historical [facility] Galindo Dominguez MD [address] [facility] [address] [place], [place] [id number] Social History Tobacco Use Types Packs/Day Years Used Date Smoking Tobacco: Never Alcohol Use Standard Drinks/Week Comments No 0 (1 standard drink = 0.6 oz pur e alcohol) Comments No Sex and Gender Information Value Date Recorded Sex Assigned at Not on file Legal Sex Female 5:41 AM ASSEMBLER BONDING Gender Identity Not on file Sexual Orientation Not on file 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 Not on file Not on fi le documented as of this encounter Plan of Treatment Upcoming Encounters Date Type Department Care Team (Late st Contact Info) Description 01/11/2025 2:15 PM CDT Office Visit [facility] Oncology and Hematology - [place] [address] [place] [address] Lorne Harrell MD [address] [facility] [address] [place] [address] 07/17/2025 11:30 AM CDT Office Visit [facility] Family Medicine [address] [facility] [address] [address] [address] [facility] [address] [address] [place] [address] [address] [facility] [address] [place] [address] documented as of this encounter Visit Diagnoses Not on filedocumented in this encounter Care Teams Bodywork Therapist Relationship Specialty [place] [address] [address] [facility] [address] [address] PCP - General Family Practice 09/16/16 documented as of this encounter
--- OUTSIDE RECORDS SUMMARY | 2025-01-03 14:25 | XMS_ITS | Referral Summary ---
Author Organization [facility] Address [address] [place] [address] Care Team Providers Care Entry Level Installation Technician Name Role Phone Mariya Bruce MD Primary Care Provider [phone] Joshua, Ama Bush MD Unavailable [phone] Essence Purvis MD Unavailable [phone] Bebeto Jack MD Unavailable [phone] Allergies Active Allergy Reactions Criticality Noted Date Comments Adhesive Tape-Silicones Other (See comments),Rash Medium 06/16/2019 Antibacterial ointments cause blisters- not allergic to tape Amoxicillin Hives,Itching Medium 11/13/2008 Bacitracin Rash Medium 08/24/2019 POISON BENJI LIKE RASH-OOZY Codeine Nausea & Vomiting Low 11/13/2008 Medications lidocaine-prilo stevie (lidocaine-pril ocaine) cream Apply topically 9 Active Active Problems Problem Noted Date Diagnosed Date Malignant neoplasm of upper- outer quadrant of right breast in female, estrogen receptor positive 06/08/2019 Social History Tobacco Use Types Packs/Day Years Used Date Smoking Tobacco: Never Smokeless Tobacco: Never Personal Safety Answer Date Recorded Getting School Help Needed Not on file 12/23 Comments Unknown Sex and Gender Information Value Date Recorded Sex Assigned at Not on file Legal Sex Female 1:47 AM METAL DRILL OPERATOR Gender Identity Female 09/04/2019 10:15 AM METAL DRILL OPERATOR Sexual Orientation Not on file Last Filed Vital Signs Vital Sign Reading Time Taken Comments Blood Pressure 94/59 09/04/2019 10:30 AM METAL DRILL OPERATOR Pulse 73 09/04/2019 10:30 AM METAL DRILL OPERATOR Temperature 37.1 C (98.8 F) 09/04/2019 10:30 AM METAL DRILL OPERATOR Respiratory Rate 18 09/04/2019 10:3 0 AM METAL DRILL OPERATOR Oxygen Saturation 98% 09/04/2019 10: 30 AM METAL DRILL OPERATOR Inhaled Oxygen Concentration - - Weight 56.6 kg (124 lb 11.2 oz) 019 10:30 AM METAL DRILL OPERATOR Height 162.2 cm (5' 3.86 ) 09/04/2019 1 0:30 AM METAL DRILL OPERATOR Body Mass Index 21.5 09/04/2019 10:30 AM METAL DRILL OPERATOR Plan of Treatment Not on file Insurance MEDICARE MEDICARE Care Teams Entry Level Installation Technician Relationship Specialty [place] [address] [address] [place] [address] PCP - General [facility] Medicine 08/25/19 [place] [address] [address] [address] Medical Oncologist Internal Medicine 08/25/19 [place] [address] [address] [place] [address] Surgeon General Surgery 08/25/19 [place] [address] [address] [place] [address] Plastic Surgeon Plastic Surgery 08/25/19
--- OUTSIDE RECORDS SUMMARY | 2025-01-03 14:25 | XMS_ITS | Encounter Summary ---
Author Organization [facility] Address [address] [place] [address] Care Team Providers Care Director Employee Safety And Health Name Role Phone Mariya Bruce MD Primary Care Provider [phone] Encounter Details Date Type Department Care Team (Latest Contact Info) Description 11/13/2008 Outpatient Historical [facility] [place] [facility] [place], [address] [address] Screening for Thyroid Disorder Social History Tobacco Use Types Packs/Day Years Used Date Smoking Tobacco: Never Alcohol Use Standard Drinks/Week Comments No 0 (1 standard drink = 0.6 oz pur e alcohol) Comments No Sex and Gender Information Value Date Recorded Sex Assigned at Not on file Legal Sex Female 5:41 AM SALESPERSON BOOKS Gender Identity Not on file Sexual Orientation Not on file 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 [address] [address] [place] [address] [facility] [address] [address] documented as of this encounter Visit Diagnoses Diagnosis Screening for thyroid disorder documented in this encounter Care Teams Director Employee Safety And Health Relationship Specialty [place] [address] [facility] [address] [address] PCP - General Family Practice 09/16/16 documented as of this encounter
--- OUTSIDE RECORDS SUMMARY | 2025-01-03 14:25 | XMS_ITS | Clinical Summary ---
Author Organization [facility] Address [address] [place] [address] Care Team Providers Care Conveyor Tender [employer] Name Role Phone Mariya Bruce MD Primary Care Provider [phone] Joshua, Ama Bush MD Unavailable [phone] Essence Purvis MD Unavailable [phone] Bebeto Jack MD Unavailable [phone] Allergies Active Allergy Reactions Criticality Noted Date [...] breast in female, estrogen receptor positive 06/08/2019 Family History Medical History Relation Name Comments Cancer Father Diabetes Father Heart disease Father Cancer Maternal Grandfather Arthritis Maternal Grandmother Cancer Mother Cancer Other Cancer Sister Relation Name Status Comments Father Maternal Grandfather Maternal Grandmother Mother Other Sister Social History Tobacco Use Types Packs/Day Years Used Date Smoking Tobacco: Never Smokeless Tobacco: Never Personal Safety Answer Date Recorded Getting School Help Needed Not on file 12/23 Comments Unknown Sex and Gender Information Value Date Recorded Sex Assigned at Not on file Legal Sex Female 1:47 AM LEVEL GLASS FORMING MACHINE OPERATOR Gender Identity Female 09/04/2019 10:15 AM LEVEL GLASS FORMING MACHINE OPERATOR Sexual Orientation Not on file Obstetrics History Last Filed Vital Signs Vital Sign Reading Time Taken Comments Blood Pressure 94/59 09/04/2019 10:30 AM LEVEL GLASS FORMING MACHINE OPERATOR Pulse 73 09/04/2019 10:30 AM LEVEL GLASS FORMING MACHINE OPERATOR Temperature 37.1 C (98.8 F) 09/04/2019 10:30 AM LEVEL GLASS FORMING MACHINE OPERATOR Respiratory Rate 18 09/04/2019 10:3 0 AM LEVEL GLASS FORMING MACHINE OPERATOR Oxygen Saturation 98% 09/04/2019 10: 30 AM LEVEL GLASS FORMING MACHINE OPERATOR Inhaled Oxygen Concentration - - Weight 56.6 kg (124 lb 11.2 oz) 019 10:30 AM LEVEL GLASS FORMING MACHINE OPERATOR Height 162.2 cm (5' 3.86 ) 09/04/2019 1 0:30 AM LEVEL GLASS FORMING MACHINE OPERATOR Body Mass Index 21.5 09/04/2019 10:30 AM LEVEL GLASS FORMING MACHINE OPERATOR Plan of Treatment Not on file Insurance MEDICARE MEDICARE Care Teams Conveyor Tender [employer] Relationship Specialty [place] [address] [facility] [address] [place] [address] PCP - General Family Medicine 08/25/19 [place] [address] [address] [address] [place] [address] Medical Oncologist Internal Medicine 08/25/19 [place] [address] [address] [address] [place] [address] Surgeon General Surgery 08/25/19 [place] [address] [address] [address] [place] [address] Plastic Surgeon Plastic Surgery 08/25/19
--- OUTSIDE RECORDS SUMMARY | 2025-01-03 14:25 | XMS_ITS | Encounter Summary ---
Author Organization [facility] Address [address] [place] [address] Care Team Providers Care Alarm Security Or Surveillance Monitor Name Role Phone Mariya Bruce MD Primary Care Provider [phone] Encounter Details Date Type Department Care Team (Late st Contact Info) Description 09/17/2015 Nurse Triage Report [facility] ABSTRACTION Dariela Mcdermott RN Social History Tobacco Use Types Packs/Day Years Used Date Smoking Tobacco: Never Alcohol Use Standard Drinks/Week Comments No 0 (1 standard drink = 0.6 oz pur e alcohol) Comments No Sex and Gender Information Value Date Recorded Sex Assigned at Not on file Legal Sex Female 5:41 AM PERSONNEL RESEARCH PSYCHOLOGIST Gender Identity Not on file Sexual Orientation Not on file 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 <<<<<<<< TRIAGE NOTE >>>>>>>> <<<<<<<< TRIAGE/OUTCOME >>>>>>>> Guideline Title: Medication Questions - Adult Recommended Disposition: Provide Health Information Original Inclination: Self Management Intended Action: Self Management Physician Contacted: No Caller has medication question(s) that was answered with available resources ? YES ONNEL RESEARCH PSYCHOLOGIST documented in this encounter Plan of Treatment Upcoming Encounters Date Type Department Care Team (Late st Contact Info) Description 01/11/2025 2:15 PM CDT Office Visit [facility] [place] Oncology and Hematology - [place] [address] [facility] [address] [place] [phone] Lorne Harrell MD [address] [facility] [address] [place] [address] 07/17/2025 11:30 AM CDT Office Visit [facility] Family Medicine Yeison Poole [facility] [address] [id number] [address] [facility] [address] [place] [address] [place] [address] Ye[address] [facility] [address] [place] [address] documented as of this encounter Visit Diagnoses Not on filedocumented in this encounter Care Teams Alarm Security Or Surveillance Monitor Relationship Specialty [place] [address] [address] [facility] [address] [place] [address] PCP - General Family Practice 09/16/16 documented as of this encounter
--- OUTSIDE RECORDS SUMMARY | 2025-01-03 14:25 | XMS_ITS | Encounter Summary ---
Author Organization [facility] [employer] [facility] Address [address] [place] [address] Care Team Providers Care Manager Web Application Name Role Phone Mariya Bruce MD Primary Care Provider [phone] Encounter Details Date Type Department Care Team (Late st Contact Info) Description 01/03/2025 Orders Only [facility] Oncology and Hematology - [place] [address] [facility] [address] [place] [address] Lorne Harrell MD [address] [facility] [address] [place] [address] Malignant neoplasm of upper-outer quadrant of right breast in female, estrogen receptor positive (CMS/HCC) (Primary Dx) Social History Tobacco Use Types Packs/Day Years Used Date Smoking Tobacco: Never Smokeless Tobacco: Never Alcohol Use Standard Drinks/Week Comments Yes 0 (1 standard drink = 0.6 oz pur e alcohol) rarely Feeling Safe Answer Date Recorded Within the last year, have y ou been afraid of your partner or ex-partner? No 08/03/2024 Within the last year, have y ou been humiliated or emotionally abused in other ways by your partner or ex-partner? No Within the last year, have y ou been kicked, hit, slapped, or otherwise physically hurt by your partner or ex-partner? No 08/03/2024 Within the last year, have y ou been raped or forced to have any kind of sexual activity by your partner or ex-partner? 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 Not on file Not on file Not on fi le documented as of this encounter Plan of Treatment Upcoming Encounters Date Type Department Care Team (Late st Contact Info) Description 01/11/2025 2:15 PM CDT Office Visit [facility] Oncology and Hematology - [place] [address] [facility] [address] [place] [phone] Lorne Harrell MD [address] [facility] [address] [place] [address] 07/17/2025 11:30 AM CDT Office Visit [facility] Family Medicine Yeison [phone] [address] [place] [address] [place] [address] [address] [facility] [place] [address] Scheduled Orders Name Type Priority Associated Diagnoses Orde r Schedule CANCER ANTIGEN 15-3 Lab Routine Malignant neoplasm of upper-outer quadrant of right breast in female, estrogen receptor positive (CMS/HCC) Expected: 01/03/2025, Expires: 01/03/2026 CBC WITH DIFFERENTIAL Lab Routine Malignant neoplasm of upper-outer quadrant of right breast in female, estrogen receptor positive (CMS/HCC) Expected: 01/03/2025, Expires: 01/03/2026 COMPREHENSIVE METABOLIC PANEL Lab Routine Malignant neoplasm of upper-outer quadrant of right breast in female, estrogen receptor positive (CMS/HCC) Expected: 01/03/2025, Expires: 01/03/2026 documented as of this encounter Visit Diagnoses Diagnosis Malignant neoplasm of upper-outer quadrant of right breast in female, estrogen receptor positive (CMS/HCC)- Primary documented in this encounter Care Teams Manager Web Application Relationship Specialty [place] [address] [address] [place] [id number] PCP - General Family Practice 09/16/16 documented as of this encounter
--- OUTSIDE RECORDS SUMMARY | 2025-01-03 14:25 | XMS_ITS ---
Author Organization [employer] [place] Address [address] [place] [address] Care Team Providers Care Dock Boss Name Role Phone Mariya Bruce MD Primary Care Provider [phone] Active Problems Patient Care Coordination No te Formatting of this note migh t be different from the original. Primary Care: Mariya Bruce MD Referring Provider: No referring provider defined for this encounter. Other: Dr. 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 Past Treatment and Therapy Plans No past plan information found. Treatment Summaries Malignant neoplasm of upper-outer quadrant of right breast in female, estrogen receptor positive (CMS/HCC)* Breast Cancer Survivorship Care Plan Provided by Kristi on 12/19/19 General Information Patient Name: Enid Batista Patient : 1955 Care Team Medical Oncologist: Dr. Mian Lewis [phone]/ Dr. Harrell Surgeon: Dr. Yuri Purvis [phone] Plastic Surgeon: Dr. Yu Jack [phone] Primary Care Physician: Mariya Bruce MD, Nurse Navigator: Madonna Hernandez RN [phone] Cancer Staging Malignant neoplasm of upper-outer quadrant of right breast in female, estrogen receptor positive Staging form: Breast, AJCC 8th Edition - Clinical stage from 08/14/2019: Stage IA (cT1b(5), cN0(sn), cM0, G1, ER+, KS+, HER2+) - Signed by Essence Purvis MD on 08/14/2019 Malignant neoplasm of upper-outer quadrant of right breast in female, estrogen receptor positive 08/14/2019 Initial Diagnosis Malignant neoplasm of upper-outer quadrant of right breast in female, estrogen receptor positive 08/14/2019 Cancer Staged Staging form: Breast, AJCC 8th Edition - Clinical stage from 08/14/2019: Stage IA (cT1b(5), cN0(sn), cM0, G1, ER+, KS+, HER2+) - Signed by Essence Purvis MD on 08/14/2019 [No treatment plan] Treatment Summary Chemotherapy PACLitaxel and trastuzumab Dates: September 2019 thru November 2019 Surgery Mastectomy - Bilateral Date: 08/07/2019 Familial Cancer Risk Assessment Genetic Testing Results: Belkis genetic testing negative Date: 06/2019 Persistent symptoms or side effects at completion of treatment: no Types: Potential late effects of treatment(s): Surgical Treatment: These are some side effects that may be a result of your breast surgery. You may have one or more of these problems or you may not experience any of these problems. Please contact your doctor if you have: A collection of fluid in the area of surgery that does not go away. Scars in the area of surgery or internally that may cause difficulty with movement. Pain in the area of surgery that does not go away after the site is healed. This may last for a long period of time. Difficulty in moving your shoulder and/or arm on the side of your surgery. Numbness, tingling, pain or weakness in the arm or hand of the side of your surgery. A clicking sound, accompanied by pain that happens when you raise your arm. Swelling or water retention in the hand, arm or shoulder region on the side of your surgery. Some people may experience swelling in their chest or back. The swelling may come and go or it may not go away. Numbness at the surgery site. Chemotherapy Treatment: The effects are going to depend on the chemotherapy drug received Adriamycin (doxirubicin) Cardiotoxicity CHF Cytoxan (cyclophosphamide) Cardiotoxicity Infertility Secondary malignancies Taxol (paclitaxel) Peripheral neuropathy Hematologic malignancies Herceptin Cardiomyopathy Cancer Survivors may experience issues with the area listed below. If you have any concerns in these or other areas, please speak with your doctors or nurses to find out how you can get help with them. Potential Areas of Concern Potential Areas of Concern Physical Functioning Memory or Concentration Loss Fatigue Resources Provided to Patient Referrals Provided: There are no referrals needs at this time Follow-up and Survivorship Care Follow Up Care Recommendation Coordinating Provider Medical Oncology history and physical (H&P) examination Visit your doctor every 3 to 6months for the first 3 years after the first treatment, every 6 to 12 months for years 4 and 5, and every year thereafter. Medical Oncologist Surgeon Non-Invasive: Every 6-12 months for 5 years; every year thereafter. Mammogram every 12 months (first mammogram 6-12 months after breast conservation therapy). Invasive: 1-4 times per year as clinically indicated for 5 years; every year thereafter. Surgeon Radiation Oncology 4-6 weeks after treatment, then every 3-6 months for the first 3 years and then every 6-12 months for year 4 and 5. Radiation Oncologist Post-treatment mammography Schedule a mammogram 1 year after your first mammogram that led to diagnosis, but no earlier than 6 months after radiation therapy. Obtain a mammogram every 6 to 12 months thereafter. Surgeon Breast self-examination Perform a breast self-examination every month. This procedure is not a substitute for a mammogram. Surgeon Pelvic examination Continue to visit a carpenter regularly. If you use tamoxifen, you have a greater risk for developing endometrial cancer (cancer of the lining of the uterus). Women taking tamoxifen should report any vaginal bleeding to their doctor. OB/Caramel Cutter Helper Bone Density Baseline prior to Anastrozole, Letrozole, and Exemestane on all postmenopausal women and repeated every 1 to 2 years as directed by physician. Medical Oncologist/Primary Care Provider Genetic counseling referral Tell your doctor if there is a history of cancer in your family. The following risk factors may indicate that breast cancer could run in the family: Ashkenazi Holiness heritage Personal or family history of ovarian cancer Any first-degree relative (mother, sister, daughter) diagnosed with breast cancer before age 50 Two or more first-degree or second-degree relatives (grandparent, aunt, uncle) diagnosed with breast cancer Personal or family history of breast cancer in both breasts History of breast cancer in a male relative PCP Non cancer related preventive care Continue your routine visits to your primary care physician for preventative care. Bone health DEXA every 2 years Calcium with vitamin D Weight bearing exercise Prostate Cancer Screening PSA Levels as discussed with your PCP Lung Cancer Screening 55-77 years of age 30 pack per year or more smoking history Current Smoker or smoked within the last 15 years No signs and symptoms of lung cancer Smoked one pack of cigarettes per day for 30 years or two packs a day for 15 years In generally good health Colon Cancer Screening Screening colonoscopy starting at age 45 or as discussed with PCP Stool guaiac tests Eat fruits and vegetables Heart Health Weight management Cholesterol management Blood sugar control Blood pressure control Cervical Cancer Screening Pap test as discussed with PCP Breast Cancer Screening Mammograms as discussed with your PCP Call your doctor if you have any of these signs and symptoms: symptoms which would preclude continuation of therapy *Any new, unusual and/or persistent symptoms should be brought to the attention of your provider. Additional Resources: Patients may have many varied questions and concerns after their cancer treatment ends. A list of local resources is provided below to assist you. [facility] Oncology Rehabilitation & Survivorship Kristi Looney [address] [place] [address] [facility] Integrative Medicine and Therapy Services - Bacilio Pappas [facility] [address] [place] [address] [facility] [place] [address] [place] [address] [facility] [address] [place] [address] [facility] [place] [address] [facility] [place] [address] [facility] Integrative Medicine & Healing Therapies [facility] Therapy Services [place] [address] [address] [place]. [address] Services: Acupuncture, Auriculotherapy, Chiropractic, Guided Imagery, Healing Touch, Massage Therapy, Nutritional Counseling, Physical Therapy (manual and traditional) and Reflexology [facility] [address] [place]. [address] Services: Acupuncture, Auriculotherapy, Chiropractic, and Massage Therapy [facility] Integrative Medicine and Therapy [facility] Cancer [place] Option [address], [address] [place] [address] Services: Acupuncture, Auriculotherapy, Guided Imagery, Healing Touch, Massage Therapy, Lymphedema,Physical Therapy and Reflexology [facility] [place] [address], [address] [place]. [address] Services: Acupuncture and Chiropractic Lymphedema Programs & Support Groups [facility] [address] [place] [address] [facility] [address] [place] [address] [place] Cancer Society www.cancer.org Help line 24 hours, 7 days/week, phone [phone] [place] [address] Hours Ace - Wednesday 8:30 am- 5 pm Services include: information and referrals, educational materials transportation assistance nutritional supplements wigs educational and support programs Breastcancer.org www.breastcancer.org Online resource for breast cancer information. Cancer Care www.cancercare.org [address] [place] [address] [phone] Cancer Care provides some financial assistance for transportation and other needs. Cancer patients must call to see if they qualify and to have an application mailed to them. They need a healthcare professional to assist with completion of the application. Cancer Support [facility] www.cancersupportstl.org [address] [place] [address] Helps people with cancer and their loved ones enhance health and well being by providing a professional program of emotional support, education and hope. Programs and services are held in a homelike setting where people with cancer can come to be with others, to build support and a sense of extended family to share, learn, and improve their quality oflife. Cancer Support Community???s [facility] Cancer Service www.cancersupportstl.org [address] [place] [address] Phone Upon the written referral of a healthcare provider involved in the patient???s care, The Wellness Community places an order for the requested items which are then sent directly to the cancer patient.The Cancer Services program covers the cost up to $500 per patient per year for items such as: wigsand prostheses, bed pads, diapers and dietary supplements to cancer patients in financial need when items are not covered by insurance. Cancer patients must live in the counties of: [facility], [facility], [place], [place], [place]; [facility] and [place]; or come to the [facility] for their cancer treatment. Chronic Disease Fund www.cdfund.org Assists patients who cannot access the treatments they need due to yqn-bx-kfbalp healthcare costs including deductibles, copayments, and coinsurance. Call to find out if there are funds for a specific diagnosis. Food Outreach www.foodoutreach.org [address] [place] [address] [phone] ([phone] Food Outreach provides nutritional services to men, women and children undergoing cancer treatment in the [facility]. A dietitian accesses each person???s nutritional status and needs. The dietitian and equity research associate work together to develop eating plans to meet the specialized nutritional needs of people living with cancer. Clients who meet financial guidelines can make selections once every 2 weeks from a menu. [place] to Hope www.[facility] campustl.org.org [phone] [place] to Hope was created to help underinsured and uninsured women at high- risk for (or diagnosedwith) breast cancer. Their goal is to lift the financial burdens, ease the unknowing, and help you focus on feeling well again. Innoverne www.Bluetrain.ioation.org Innoverne addresses the needs of individuals who cannot afford their insurance co-payments, premiums, coinsurance, or other ron-vl-kpfrhu health care costs. Call to see if they offer assistance for a specific diagnosis. Living Beyond Breast Cancer www.lbbc.org [phone] ([phone]) Survivor???s helpline Website and free helpline for women with breast cancer. MDCapsule www.3rdKind.Dr. Jerry's Smooth Move A resource for medication assistance programs for people who have no insurance coverage or limited coverage for medications. Patient Access Network Foundation www.patientaccessnetwork.org Assists patients who cannot access the treatments they need due to nnl-ih-qtcytm healthcare costs including deductibles, copayments, and coinsurance. Call to find out if there are funds for a specific diagnosis. Patient Advocate Foundation???s Co-Pay Relief Program www.copSocialspiel.org Provides direct co-payment assistance for pharmaceutical products to insured patients (including Medicare Part D beneficiaries), who financially and medically qualify. Call to find out if they provide assistance for a specific diagnosis. [facility] Bacilio Pappas [facility] www.city hospital.org [address] [place] [address] Phone , or [phone] Provides education, information, and support to patients and family members Open M-F, 8:00 am- 4:30 pm, staff include registered nurses, social service agency director, dietitian [facility], [facility]. www.Keen Systems.org [address] [place] [address] Hours are M-F, 8:30 am- 4:30 pm The [facility] Society serves cancer patients in [facility]. Assistance is provided for the following when not covered by insurance: dietary supplements, prostheses, medications, surgical dressings, respite care, colostomy supplies,catheters, transportation, postoperative appliances ADDITIONAL WEBSITES Association of Community Cancer Centers www.acc-cancer.org National Cancer Aniwa http://cancer.gov The National Coalition for Cancer Survivorship www.canceradvocacy.org National Memorial HealthcareCancer Cancer Education Academy of Oncology Nurse & Patient Navigators: www.aonnonline.org Rony's Lemonade Stand Foundation for Childhood Cancer: www.alexslemonade.org [place] Cancer Society: www.cancer.org [place] Society of Clinical Oncology: www.cancer.net Association of Community Cancer Centers: www.[facility]-cancer.org TPISFD527: www..org CancerCare: www.cancercare.org CancerGuide: www.cancerguide.org CancerQuest: www.cancerquest.org Centers for Disease Control and Prevention (CDC): www.cdc.gov The Gathering Place: www.touchedbycancer.org Get Palliative Care: www.getpalliativecare.org Global Resource for Advancing Cancer Education (ZOYA): www.cancergrace.org The Hope Light Foundation: www.ARS Traffic & Transport Technologylightproject.Dr. Jerry's Smooth Move LIVESTRONG Foundation: www.livestrong.org National Cancer Aniwa: www.cancer.gov National Comprehensive Cancer Network (NCCN): www.nccn.org National BT Cancer Network: http://cancer-network.org OncoLink: www.oncolink.org Oncology Nursing Society: www.ons.org Patient Power: www.patientpower.info PearlPoint Cancer Support: www.pearlpoint.org bMobilized Foundation: www.pinestreetfoundation.org R.A. Amy Cancer Foundation: www.blochcancer.org [facility] Foundation: www.[facility].org Triage Cancer: www.triagecancer.org U.S. National Library of Medicine: www.nlm.nih.gov Financial Assistance [place] Cancer Society: www.cancer.org Wall[place] Kidney Fund: www.kidneyfund.org BenefitsCheckUp: www.benefitscheckup.org Bringing Hope Home: www.[facility].org CancerCare: www.cancercare.org/financial Cancer Financial Assistance Coalition: www.cancerfac.org Patronpath: www.IQumulus.Sharetribe Foundation: www.Bluetrain.ioation.org Hope [place]: www.cancer.org/treatment/supportprogramsservices/bautista ALEGRIA Foundation: www.A Bit Luckytrong.org Medicare.gov: www.medicare.gov NeedyMeds: www.needymeds.Dr. Jerry's Smooth Move Partnership for Prescription Assistance: www.pparx.org Patient Access Network Foundation: www.panfoundation.org Patient Advocate Foundation: www.patientadvocate.org Patient Services, Inc.: www.patientservicesinc.org The Terence Cintron Foundation: www.pinsforpauly.org RxAssist: www.rxassist.[employer] RxHope: www.rxhope.Dr. Jerry's Smooth Move Social Security Administration: www.ssa.gov Social Security Disability Resource Center: www.ssd.Dr. Jerry's Smooth Move State Health Insurance Assistance Programs: www.shiptaMediaVaster.[employer] Stupid Cancer: www.stupidcancer.org [place] Cancer Society Guidelines on Nutrition and Physical Activity For Cancer Prevention 1. Achieve and maintain a healthy weight. Avoid weight gain during cancer treatment, whether you are at a healthy weight or overweight. Weight loss after recovery from treatment may benefit survivors who are overweight or obese. 2. Be physically active. Studies show that exercise is safe during cancer treatment, and can improve many aspects of health,including muscle strength, balance, fatigue, and depression. Physical activity after diagnosis is linked to living longer and a reduced risk of the cancer returning among people living with cancer, including breast, colorectal, prostate, and ovarian cancer. Aim for 30 min of exercise 5 days a week. 3. Eat a healthy diet, with an emphasis on fruits, vegetables, and whole grains. The most health benefits are associated with a diet high in fruits, vegetables, whole grains, poultry, and fish, and low in refined grains, red meat and processed meat (such as hot dogs), desserts, high-fat dairy products and Burmese fries. Most of the studies about cancer and diet have focused on breast cancer. Studies show that taking vitamins, herbs and other nutritional supplements often does not help cancer patients live longer, and may even shorten life. Before taking any supplement, discuss it with your health care provider. 4. Don't smoke 5. If you drink alcohol, limit your intake. Drink no more than 1 drink per day for women or 2 per day for men. 6. Sunscreen use Exposure to ultraviolet rays is the leading cause of skin cancer. It is important to protect your skin. Sun damage builds up over time. It is important to use sunscreen every day. You should use a sunscreen that is water resistant and has an SPF of 30 or above. Remember to also protect your lips and eyes. 7. Routine blood pressure, cholesterol, and glucose monitoring. While many cancer survivors worry about their cancer coming back most cancer survivors are more likely to develop other chronic medical conditions such as high blood pressure, heart disease, and diabetes. Be sure to start and/or continue to see your primary care physician regularly. 8. Vaccines The flu is a respiratory infection caused by viruses. While most people with the flu get better on their own it can be serious. It can cause many medical complications and sometimes even . Be sure to get an annual influenza vaccine (flu shot). Pneumococcal diseases can cause serious infections in the lungs and bloodstream. A pneumococcal vaccine is recommended for all adults 65 years of age and older. It is also recommended for some younger adults who have chronic health conditions. Be sure and check with your doctor if you need a pneumococcal vaccine. 9. Routine Dental Care Your oral health may be more important than you think. It can contribute to various medical diseases and conditions. Daily oral hygiene helps decrease our risk of tooth decay and gum disease. Be sureto brush twice a day, floss daily, and see your dentist regularly for checkups and cleanings. 10. Eye Health Our eyes are called the windows to the world. Make sure you take good care of your eyes. Adults should have their eyes examined every 2 years until age 60. We should then undergo eye exams yearly. Individuals with contact lenses, glasses, or who are at high risk for eye problems (i.e. diabetes, family history of eye disease) should be seen more frequently. Breast Cancer Follow Up Sheet Date of Surgery (DOS) 08/07/2019 Estimated Target Dates Dates Completed DOS plus Actual Dates Mammogram1 (Date/Value) Follow Up Visit2 + 0 yrs / 3 mo + 0 yrs / 6 mo + 0 yrs / 9 mo + 1 yrs / 0 mo + 1 yrs / 3 mo + 1 yrs / 6 mo + 1 yrs / 9 mo + 2 yrs / 0 mo + 2 yrs / 3 mo + 2 yrs / 6 mo + 2 yrs / 9 mo + 3 yrs / 0 mo + 3 yrs / 6 mo + 4 yrs / 0 mo + 4 yrs / 6 mo + 5 yrs / 0 mo Comments / Evidence of Recurrence: Important caution: this is a summary document whose purpose is to review the highlights of the cancer treatment for this patient. This does not replace information available in the medical record, a complete medical history provided by the patient, examination and diagnostic information, or educational materials that describe strategies for coping with cancer and cancer therapies in detail. Both medical science and an individual???s health care needs change, and therefore this document is current only as of the date of preparation. This summary document does not prescribe or recommend any particular medical treatment or care for cancer or any other disease and does not substitute for the independent medical judgment of the treating professional. Resolved Problems Problem Noted Date Diagnosed Date Resolved Date Menopause 11/14/2008 11/14/2008
--- OUTSIDE RECORDS SUMMARY | 2025-01-03 14:25 | XMS_ITS | Encounter Summary ---
Author Organization [facility] Address [address] [place] [address] Care Team Providers Care Surgical Technician Name Role Phone Mariya Bruce MD Primary Care Provider [phone] Encounter Details Date Type Department Care Team (Late st Contact Info) Description 11/20/2024 Results Follow-Up [facility] Family Medicine Yeison Poole [facility] [phone] [facility] [address] [place] [address] [place] [address] [address] [facility] [address] [place] [address] COLON CANCER SCREEN, STOOL DNA Social History Tobacco Use Types Packs/Day Years [...] on file Legal Sex Female 5:41 AM PRODUCTION CONTROL PLANNER Gender Identity Not on file Sexual Orientation Not on file 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 Not on file Not on file Not on fi le documented as of this encounter Miscellaneous Notes * Result Encounter Note - Mariya Bruce MD - 11/20/2024 7:31 PM CST [facility] CONTROL [facility]ANNER documented in this encounter Plan of Treatment Upcoming Encounters Date Type Department Care Team (Late st Contact Info) Description 01/11/2025 2:15 PM CDT [facility] Visit [facility] Oncology [facility] H[facility]ology - [place] [address] [facility] [address] [place] [phone] Lorne Harrell MD [address] [facility] [address] [place] [address] 07/17/2025 11:30 AM CDT Office Visit [facility] Family Medicine Yeison Poole [place] [address] [place] [address] [place] [address] [place] [address] [address] [place] [address] [place] [address] documented as of this encounter Visit Diagnoses Not on filedocumented in this encounter Care Teams Surgical Technician Relationship Specialty [place] [address] [address] [place] [address] [place] [address] PCP - General Family Practice 09/16/16 documented as of this encounter
--- OUTSIDE RECORDS SUMMARY | 2025-01-03 14:26 | XMS_ITS | Clinical Summary ---
Author Organization [facility] Address [address] [place] [address] Care Team Providers Care Ux Engineer Name Role Phone Mariya Bruce MD Primary Care Provider Allergies Active Allergy Reactions Criticality Noted Date Comments Amoxicillin Rash Low 12/20/2011 Codeine Confusion,Dizziness Medium 12/20/2011 Ltibnjoe-Ltwumpale-Gmxlphtel Hives High 019 Medications No known medications Active Problems Patient Care Coordination No te [...] from 08/14/2019:Stage IA(cT1b(5), cN0(sn), cM0, G1, ER+, MA+, HER2+) - Signed by Essence Purvis MD [...] Actinic keratosis 12/01/2008 Menopause 11/13/2008 Cervicalgia 11/13/2008 Resolved Problems Problem Noted Date Diagnosed Date Resolved Date Menopause 11/14/2008 11/14/2008 Encounters Date Type Department Care Team Description 01/03/2025 Orders Only [facility] Oncology and Hematology - [address] [facility] [address] [place] [address] Lorne Harrell MD Malignant neoplasm of upper-outer quadrant of right breast in female, estrogen receptor positive (CMS/HCC) (Primary Dx) 11/29/2024 External Device Data STL ABSTRACTION Provider, Abstract 11/29/2024 External Device Data STL ABSTRACTION Provider, Abstract 11/20/2024 Results Follow-Up [facility] [address] [address] [facility] [address] [place] [address] Mariya Bruce MD COLON CANCER SCREEN, STOOL DNA 11/02/2024 External Device Data STL ABSTRACTION Provider, Abstract 10/09/2024 Orders Only [facility] [address] [address] [facility] [address] [place] [address] Mariya Bruce MD Screening for colon cancer (Primary Dx) from Last 3 Months Immunizations Immunization Administration Dates Next Due (ADACEL/BOOSTRIX)(10 YR UP) TDAP VACCINE, 0.5ML, IM 08/07/2011 (COMIRNATY)(12 YR UP) COVID- 19 VACCINE, MRNA, SPIKE PROTEIN, LNP, NANCY(PF) 30 MCG/0.3 ML IM SUSP 07/24/2024 (PFIZER)(12 YR UP) COVID-19 VACCINE - EMERGENCY USE AUTHORIZATION, MRNA, [id number](PF) 30 MCG/0.3 ML IM SUSP 07/31/2021,12/23/2020,11/30/2020 (PNEUMOVAX 23)(50 YRS UP) PN EUMOCOCCAL POLYSACCHARIDE (PPV23) 0.5 ML, IM 08/07/2020 (PREVNAR 13)(6 WKS UP) PNEUM OCOCCAL CONJUGATE (PCV13) 0.5 ML, IM 07/05/2019 INFLUENZA VACCINE HIGH DOSE QUADRIVALENT 65 YR UP PF IM 07/15/2023,07/21/2021 INFLUENZA VACCINE HIGH DOSE TRIVALENT SPLIT VIRUS, (65 YR UP), 0.5ML (PF), IM 07/24/2024 INFLUENZA VACCINE QUADRIVALE NT 3 YR UP PF IM 09/12/2018,07/15/2016 INFLUENZA VACCINE QUADRIVALE NT 6 MOS UP IM 08/07/2020 INFLUENZA VACCINE QUADRIVALE NT 6 MOS UP PF IM 07/15/2016 Influenza Seasonal Unspecifi ed Formulation IM 07/11/2022,06/28/2019,07/28/2017,07/16,08/16/2013,07/18/2012 Influenza Vaccine High Dose 65+ Yrs IM 9 Influenza Vaccine Quad Split 3+ Yrs Im 4 Influenza Vaccine Split 3+ Yrs IM 08/12/2015 Family History Medical History Relation Name Comments Prostate Cancer Brother 62 Cancer Father Diabetes Father Heart Disease Father Prostate Cancer Father Breast Cancer Maternal Cousin 30 Cancer Maternal Cousin 30 Cancer Maternal Grandfather Prostate Cancer Maternal Grandfather Cancer Maternal Grandmother Breast Cancer Mother Cancer Mother Skin Cancer Mother Uterine Cancer Mother Breast Cancer Other niece,brother's daughte Cancer Other niece,brother's daughte Breast Cancer Paternal Aunt Cancer Paternal Aunt Colon Cancer Paternal Cousin 50 Other Paternal Grandfather Alzheim ers Healthy Paternal Grandmother Breast Cancer Sister 1 BRCA negative Breast Cancer Sister 2 30 Relation Name Status Comments Brother 62 Alive Father Maternal Cousin 30 Maternal Grandfather Maternal Grandmother Mother Alive Other niece,brother's daughte Alive Paternal Aunt Paternal Cousin 50 Alive Paternal Grandfather Paternal Grandmother Sister 1 Alive Sister 2 30 Alive Social History Tobacco Use Types Packs/Day Years Used Date Smoking Tobacco: Never Smokeless Tobacco: Never Tobacco Cessation:Counseling Given: Not Answered Alcohol Use Standard Drinks/Week Comments Yes 0 [...] on file Legal Sex Female 5:41 AM HAND CELL TUBER Gender Identity Not on file Sexual Orientation Not on file 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 Not on file Not on file Not on fi le Last Filed Vital Signs Vital Sign Reading Time Taken Comments Blood Pressure 140/64 08/03/2024 9:08 AM CDT Pulse 59 07/24/2024 10:57 AM CDT Temperature 36.1 C (96.9 F) 11/23/2023 11:34 AM HAND CELL TUBER Respiratory Rate 14 11/23/2023 11:34 AM HAND CELL TUBER Oxygen Saturation 97% 11/23/2023 11:34 AM HAND CELL TUBER Inhaled Oxygen Concentration - - Weight 59.9 kg (132 lb) 08/03/2024 9:08 AM CDT Height 162.6 cm (5' 4 ) 08/03/2024 9:08 AM CDT Body Mass Index 22.66 08/03/2024 9:08 AM CDT Plan of Treatment Upcoming Encounters Date Type Department Care Team (Late st Contact Info) Description 01/11/2025 2:15 PM CDT Office Visit [facility] Oncology and Hematology - [place] [address] [facility] [address] [place] [address] Lorne Harrell MD [address] [facility] [address] [place] [address] 07/17/2025 11:30 AM CDT Office Visit [facility] Family Medicine Yeison Poole [place] [address] [address] [address] [place] [address] [place] [address] [address] [place] [address] [place] [address] Health Maintenance Due Date Last Done Comments FIT/FOBT Q 1 YEAR (AUTO ORDER) 02/19/1972 FLEX SIG/CT COLONOGRAPHY Q 5 YEARS (AUTO ORDER) 02/19/1972 FIT/FOBT Q 1 year 1999 Flex Sig/CT Colonography Q 5 years 1999 ZOSTER VACCINE (1 of 2) 02/19/2004 COLORECTAL CANCER SCREENING (AUTO ORDER) 04/21/2020 04/21/2010 COLORECTAL SCREENING 04/21/2020 04/21/2010 DTAP/TDAP/TD VACCINES (2 - T d or Tdap) 08/07/2021 08/07/2011 COVID-19 Vaccine (2023-11 5 season) 2025 07/24/2024, 07/31/2021, 12/23/2020, Additional history exists Traditional Medicare (ACO) A nnual Wellness Visit 07/25/2025 07/24/2024, 07/15/2023, 07/05/2019 Colorectal Cancer Screening (AUTO ORDER) 11/13/2027 Colorectal Cancer Screening 11/13/2027 FIT-DNA Q 3 years 11/13/2027 11/13/2024 FIT/ DNA Q 3 YEARS (AUTO ORDER) 11/13/2027 5 RSV VACCINE (60+ or ) (1 - 1-dose 75+ series) 2029 PNEUMOCOCCAL VACCINE 50+ YEARS Completed 08/07/2020 , 07/05/2019 INFLUENZA VACCINE Completed 07/24/2024, , 07/11/2022, Additional history exists OSTEOPOROSIS SCREENING Completed 4, 05/26/2019, 05/26/2019, Additional history exists Medical Devices Implanted Type Area Car Supervisor Device Identifier Shelf Expiration Date Model / Serial / Lot Medical Radiation Tech Clip Surgiclip Ii Chilo 9.75in [id number] - [id number] Implanted:Qty : 1 on 08/07/2019 by Essence Purvis MD at [facility] Clip Right: Axilla MEDTRONIC - COVIDIEN 04/09/2024 [id number] / / [id number] Natrelle Inspira Softtouch Breast Implant Implanted:Qty : 1 on 08/07/2019 by Bebeto Jack MD at [facility] Mammary Left: Breast ALLERGAN- MEDICAL 01/18/2024 SSX-545 / [id number] / Catherine Encinas Softtouch Breast Implant Implanted:Qty : 1 on 08/07/2019 by Essence Purvis MD at [facility] Mammary Right: Breast ALLERGAN- MEDICAL 04/02/2024 SSX-545 / [id number] / Alloderm Select Tissue Matrix Rtu Implanted:Qty : 1 on 08/07/2019 by Bebeto Jack MD at [facility] Right: Breast LIFECELL JOSE 05/10/2021 [id number] / / [id number] Alloderm Select Tissue Matrix Rtu Implanted:Qty : 1 on 08/07/2019 by Essence Purvis MD at [facility] Left: Breast LIFECELL JOSE 05/10/2021 [id number] / / [id number] Explanted Type Area Car Supervisor Device Identifier Shelf Expiration Date Model / Serial / Lot Powerport Clearvue Slim Implantable Port Implanted:Qty: 1 on 09/06/2019 by Essence Purvis MD at [facility] Explanted:Qty: 1 on 09/18/2020 by Essence Purvis MD at [facility] Port Left: Chest CR BARD- ACCESS SYS 09/09/2020 [id number] / / [id number] Description:Car Supervisor Bar d Breast Implants Explanted:Qty: 1 on 08/07/2019 by Essence Purvis MD at [facility] [place] Bilateral: Breast Description:Breast implants were removed by Dr. Purvis during bilateral mastectomy procedure. No information is available on these implants. Procedures Procedure Name Priority Date/Time Associated Diagnosis Comments COLON CANCER SCREEN, STOOL DNA Routine 11/13/2024 3:15 PM HAND CELL TUBER Screening for colon cancer XR DEXA BONE DENSITY AXIAL 1 OR MORE SITES Routine 09/25/2024 11:27 AM HAND CELL TUBER Menopause from Last 3 Months or Most Recently Relevant to Health Maintenance Results * COLON CANCER SCREEN, STOOL DNA (11/13/2024 3:15 PM HAND CELL TUBER) COLOGUARD RESULT Negative Negative CosNet Comment: NEGATIVE TEST RESULT. A negative Cologuard result indicates a low likelihood that a colorectal cancer (CRC) or advanced adenoma (adenomatous polyps with more advanced pre-malignant features) is present. The chance that a person with a negative Cologuard test has a colorectal cancer is less than 1 in 1500 (negative predictive value >99.9%) or has an advanced adenoma is less than 5.3% (negative predictive value 94.7%). These data are based on a prospective cross-sectional study of 10,000 individuals at average risk for colorectal cancer who were screened with both Cologuard and colonoscopy. (Adan Hood al, N Engl J Med 2014;370(14):3756-1219) The normal value (reference range) for this assay is negative. COLOGUARD RE-SCREENING RECOMMENDATION: Periodic colorectal cancer screening is an important part of preventive healthcare for asymptomatic individuals at average risk for colorectal cancer. Following a negative Cologuard result, the [place] [employer] Society and U.S. Multi-Society Task Force screening guidelines recommend a Cologuard re-screening interval of 3 years. References: [place] [employer] Guideline for Colorectal Cancer Screening: https://www.cancer.org/cancer/cjnnb-jyrmik-bywefg/kvmshhqne-jokndypjs-xjeppzn/ac s-rec ommendations.html.; Han DK, Evelyn CR, Pritesh HuntleyK, Colorectal Cancer Screening: Recommendations for Physicians and Patients from the U.S. Multi-Society Task Force on Colorectal Cancer Screening , Am J Gastroenterology 2017; 112:8226-2570. TEST DESCRIPTION: Composite algorithmic analysis of stool DNA-biomarkers with hemoglobin immunoassay. Quantitative values of individual biomarkers are not reportable and are not associated with individual biomarker result reference ranges. Cologuard is intended for colorectal cancer screening of adults of either sex, 45 years or older, who are at average-risk for colorectal cancer (CRC). Cologuard has been approved for use by the U.S. FDA. The performance of Cologuard was established in a cross sectional study of average-risk adults aged 50-84. Cologuard performance in patients ages 45 to 49 years was estimated by sub-group analysis of near-age groups. Colonoscopies performed for a positive result may find as the most clinically significant lesion: colorectal cancer [4.0%], advanced adenoma (including sessile serrated polyps greater than or equal to 1cm diameter) [20%] or non- advanced adenoma [31%]; or no colorectal neoplasia [45%]. These estimates are derived from a prospective cross-sectional screening study of 10,000 individuals at average risk for colorectal cancer who were screened with both Cologuard and colonoscopy. (Adan Hood al, N Engl J Med 2014;370(14):7321-8579.) Cologuard may produce a false negative or false positive result (no colorectal cancer or precancerous polyp present at colonoscopy follow up). A negative Cologuard test result does not guarantee the absence of CRC or advanced adenoma (pre-cancer). The current Cologuard screening interval is every 3 years. ([place] Cancer Society and U.S. Multi-Society Task Force). Cologuard performance data in a 10,000 patient pivotal study using colonoscopy as the reference method can be accessed at the following location: www.SurgiQuest.GazeHawk/results. Additional description of the Cologuard test process, warnings and precautions can be found at www.[facility].com. Stool STOOL SPECIMEN / Unknown 11/13/2024 3:15 PM HAND CELL TUBER 11/14/2024 1:42 PM HAND CELL TUBER us Mariya Bruce MD BODY FLUIDS AND STOOLS Final Re sult [employer] CLIA # [id number] [address] , [address] [place] [address] * XR DEXA BONE DENSITY AXIAL 1 OR MORE SITES (09/25/2024 11:27 AM HAND CELL TUBER) Anatomical Region Laterality Modality Computed Radiogr aphy 09/25/2024 11:2 7 AM HAND CELL TUBER Impressions 09/25/2024 12:08 PM HAND CELL TUBER FINDINGS/IMPRESSION: Bone density measurements were made of the lumbar spine and hips. Lowest T score of -2.7, consistent with osteoporosis and high risk of fracture. FRAX: 10 year probability of major osteoporotic fracture is 15.5 %. 10 year probability of hip fracture is 4.6 %. Please refer to the full report available in [facility] under the PACS Images tab. If a faxed copy is needed, please call [phone]. DICTATION LOCATION: [facility] Narrative 09/25/2024 12:08 PM HAND CELL TUBER SUMMARY DEXA REPORT DATE: 09/25/2024 11:27 AM INDICATION: Postmenopausal Procedure Note Marah Silva MD - 09/25/2024 SUMMARY DEXA REPORT DATE: 09/25/2024 11:27 AM INDICATION: Postmenopausal FINDINGS/IMPRESSION: Bone density measurements were made of the lumbar spine and hips. Lowest T score of -2.7, consistent with osteoporosis and high risk of fracture. FRAX: 10 year probability of major osteoporotic fracture is 15.5 %. 10 year probability of hip fracture is 4.6 %. Please refer to the full report available in [facility] under the PACS Images tab. If a faxed copy is needed, please call [phone]. DICTATION LOCATION: [facility] Mariya Bruce MD DIAGNOSTIC IMAGING ORDERABLES F inal Result from Last 3 Months or Most Recently Relevant to Health Maintenance Insurance [employer] (INTERNAL) [employer] [employer] (INTERNAL) [employer] RX [employer] Medicare Part B MEDICARE PART A AND B MEDICARE PART A AND B Advance Directives For more information, please contact: [phone] * Full Code (Latest Code Status on File) Date Activated Date Inactivated Comments 08/07/2019 5:41 PM 08/08/2019 1:08 PM * Full Code Date Activated Date Inactivated Comments 08/07/2019 9:31 AM 08/07/2019 5:41 PM * Full Code Date Activated Date Inactivated Comments 04/21/2010 12:37 PM 04/22/2010 2:33 AM Care Teams Ux Engineer Relationship Specialty [place] [address] [address] [phone] PCP - General Family Practice 09/16/16
[2025-01-03 14:28] LABS: Alanine Aminotransferase 22 U/L (6-35); Albumin Level 4.4 g/dL (3.5-5.1); Alkaline Phosphatase 67 U/L (38-126); Anion Gap 7 mmol/L (4-12); Aspartate Amino Transferase 28 U/L (14-36); Bilirubin,Total 1.3 mg/dL (0.2-1.3); Blood Urea Nitrogen 23 mg/dL (7-17); Calcium 9.7 mg/dL (8.4-10.2); Carbon Dioxide 29 mmol/L (22-30); Chloride 101 mmol/L (98-107); Estimated Glomerular Filt Rate > 60; Glucose 105 mg/dL (65-110); Potassium 4.4 mmol/L (3.4-5.0); Sodium 137 mmol/L (137-145)
[2025-01-05 10:13] LABS: CA 15-3 14 U/mL (<32)
== END 2025-01-03 13:17 | disposition home or self-care (01) ==
LOC: ANHLAB 13:17
PROVIDERS: Visit Provider Internal Medicine Hematology & Oncology
DX: C50.411 Malignant neoplasm of upper-outer quadrant of right female breast (principal); Z17.0 Estrogen receptor positive status [ER+]
CPT/HCPCS: 36415; 80053; 85025; 86300